=== PATIENT | female | born 1955 | race Caucasian/White ===

== ENCOUNTER → 2020-07-21 00:41 | Outpatient (CLI) | payer MEDICARE, SELFPAY ==
[2020-07-22 00:40] LABS: SARS-CoV-2 RNA PCR Negative
== END ==
PROVIDERS: PCP Family Medicine; Visit Provider Internal Medicine Gastroenterology
DX: Z01.812 Encounter for preprocedural laboratory examination (principal); Z20.822 Contact with and (suspected) exposure to COVID-19
CPT/HCPCS: C9803; U0003; U0005

== ENCOUNTER 2020-07-24 02:55 | Day surgery (SDC) | payer MEDICARE, SELFPAY ==
[2020-07-12 10:52] VITALS: BMI 33.1
[2020-07-24] MEDS: LACTATED RINGERS 1,000 ML 150 ML IV CONT (07:36)
[2020-07-24 07:38] VITALS: BMI 31.9
[2020-07-24 07:39] VITALS: BP 111/72; PULSE 71; RESP 16; TEMP 37.1; O2SAT 97
--- NOTE | 2020-07-24 07:58 | PM.HPGS ---
History of Present Illness History of Present Illness Consent: Risks, benefits, and alternatives have been discussed and questions answered. Patient agrees to proceed with procedure. Chief complaint: neoplasm screening Narrative: Sarah Sutton is a 64 year old female Here for colon cancer screening Review of Systems Review of Systems: All systems reviewed & are unremarkable except as noted in HPI and below PMFSH Past Medical History Medical History Cataract (~2019) Hepatitis C antibody test negative (02/13/17) Surgical History Surgical History H/O laparoscopy (~1989) Family History Family History Father Diabetes mellitus Hypertension Acute myocardial infarction Family history of coronary artery disease Grandparent Family history of kidney disease Family history of lung cancer Family history of coronary artery disease Mother Family history of coronary artery disease Other Family history of arthritis Family history of cardiovascular disease Family history of cataracts Family history of elevated blood lipids Family history of hearing loss Family history of malignant neoplasm of breast Family history of osteoporosis Social History Social History Smoking status: Never smoker Second hand tobacco smoke exposure: No Alcohol intake: never Substance use: never Substance use type: does not use Living arrangements: with family Gender identity (if verbalized by the patient): Female Spiritual care concerns: No Agree to blood products: Yes Meds Home Medications and Allergies Home Medications Medication Instructions Recorded Confirmed Type cholecalciferol (vitamin D3) 25 25 mcg PO DAILY 09/19/19 07/24/20 History mcg (1,000 unit) capsule atorvastatin 20 mg tablet 20 mg PO DAILY #90 tablet 04/04/20 07/24/20 Rx ezetimibe 10 mg tablet 10 mg PO DAILY #90 tablet 04/04/20 07/24/20 Rx lisinopril 10 mg tablet 10 mg PO DAILY #90 tablet 04/04/20 07/24/20 Rx topiramate 25 mg tablet 25 mg PO DAILY #90 tablet 06/26/20 07/24/20 Rx Allergies Allergy/AdvReac Type Severity Reaction Status Date / Time NKDA Allergy Unknown Unknown Uncoded 07/24/20 07:32 Vital Signs Vital Signs - 24 hr 07/24/20 07:39 Temperature 37.1 C Pulse Rate 71 Respiratory Rate 16 Blood Pressure 111/72 Pulse Oximetry 97 Exam Resp: Auscultation: clear to auscultation bilaterally Cardio: Rate: regular rate Rhythm: regular rhythm GI: GI Palp: Yes Soft to palpation and No Tenderness to palpation present (GI) Assessment and Plan Assessment and plan (1) Colon cancer screening: Code(s): Z12.11 - Encounter for screening for malignant neoplasm of colon Status: Acute Assessment and Plan: Colonoscopy with possible biopsy or polypectomy or cautery or injection of substances.
--- NOTE | 2020-07-24 08:07 | WPDANESEPPF ---
Anes - Initial Pre Proc Eval Procedure: Operation Date: 07/24/20 08:30 Proposed Procedures p Screening Colonoscopy - Edgardo Gonzalez MD Date/Time: 07/24/20 08:07 Surgeon: Edgardo Gonzalez MD Pre Op Diagnosis: neoplasm screening Patient Data Age: 64 Gender: F Height: 4 ft 10 in Weight: 69.3 kg Last Vital Signs Temp 98.7 F 07/24/20 07:39 Pulse 71 07/24/20 07:39 Resp 16 07/24/20 07:39 BP 111/72 07/24/20 07:39 Pulse Ox 97 07/24/20 07:39 Allergies Allergy/AdvReac Type Severity Reaction Status Date / Time NKDA Allergy Unknown Unknown Uncoded 07/24/20 07:32 Home Medications Medication Instructions Recorded Confirmed Type cholecalciferol (vitamin D3) 25 25 mcg PO DAILY 09/19/19 07/24/20 History mcg (1,000 unit) capsule atorvastatin 20 mg tablet 20 mg PO DAILY #90 tablet 04/04/20 07/24/20 Rx ezetimibe 10 mg tablet 10 mg PO DAILY #90 tablet 04/04/20 07/24/20 Rx lisinopril 10 mg tablet 10 mg PO DAILY #90 tablet 04/04/20 07/24/20 Rx topiramate 25 mg tablet 25 mg PO DAILY #90 tablet 06/26/20 07/24/20 Rx Patient hx anesthesia problems: none Family hx anesthesia problems: none PMFSH Past Medical History Medical History (Updated 07/24/20 @ 08:07 by Connor Gonzalez MD) Cataract (~2019) Essential (primary) hypertension Hepatitis C antibody test negative (02/13/17) Pure hypercholesterolemia, unspecified Surgical History Surgical History H/O laparoscopy (~1989) Family History Family History Father Diabetes mellitus Hypertension Acute myocardial infarction Family history of coronary artery disease Grandparent Family history of kidney disease Family history of lung cancer Family history of coronary artery disease Mother Family history of coronary artery disease Other Family history of arthritis Family history of cardiovascular disease Family history of cataracts Family history of elevated blood lipids Family history of hearing loss Family history of malignant neoplasm of breast Family history of osteoporosis Social History Social History Smoking status: Never smoker Second hand tobacco smoke exposure: No Alcohol intake: never Substance use: never Substance use type: does not use Living arrangements: with family Gender identity (if verbalized by the patient): Female Spiritual care concerns: No Agree to blood products: Yes Anes - Eval Final PreProcedure Day of Procedure 07/24/20 08:07 Patient weight: overweight Heart: regular rate and rhythm Lungs: clear to auscultation Airway: Mallampati scale class II Neurological: alert and oriented Last oral intake: >/= 8 hours ASA classification: III Emergent: no Anesthetic plan: proceed Anesthesia type and monitoring: general GIVS and standard monitoring Informed Consent: The patient's anesthetic plan and its attendant risks and benefits were discussed with the patient/family/POA. Questions were solicited and answers provided to the satisfaction of the patient/family/POA.
[2020-07-24 08:49] VITALS: BP 106/62; PULSE 70; RESP 26; O2SAT 98
[2020-07-24 08:59] VITALS: BP 112/62; PULSE 62; RESP 20; O2SAT 98
[2020-07-24 09:09] VITALS: BP 115/60; PULSE 61; RESP 18; O2SAT 98
== END 2020-07-24 09:20 | disposition home or self-care (01) ==
PROVIDERS: PCP Family Medicine; Visit Provider Internal Medicine Gastroenterology
PROC: 0DJD8ZZ Inspection of Lower Intestinal Tract, Via Natural or Artificial Opening Endoscopic (ICD-10-PCS; CPT 45378; principal; 2020-07-24 08:30)
DX: Z12.11 Encounter for screening for malignant neoplasm of colon (principal); K57.30 Diverticulosis of large intestine without perforation or abscess without bleeding; Z80.1 Family history of malignant neoplasm of trachea, bronchus and lung; Z80.3 Family history of malignant neoplasm of breast; Z82.49 Family history of ischemic heart disease and other diseases of the circulatory system
CPT/HCPCS: G0121; J7120

== ENCOUNTER 2021-03-20 11:04 | Emergency (ER) | payer MEDICARE, SELFPAY ==
[2021-03-20 11:24] VITALS: BP 151/97; PULSE 96; RESP 18; TEMP 36.6; O2SAT 98
[2021-03-20 13:55] VITALS: BP 159/109; PULSE 95; RESP 18; O2SAT 96
--- NOTE | 2021-03-20 15:07 | PC.NURSE ---
PT ambulatory out of ED stating if i from an aneurysm, i will nataliya you'. pt ambulatory swiftly out of ED with nl steady gait.
== END 2021-03-21 04:23 | disposition left against medical advice (07) ==
PROVIDERS: PCP Family Medicine
DX: R51.9 Headache, unspecified (principal)
CPT/HCPCS: 99199

== ENCOUNTER → 2021-03-27 02:52 | Outpatient (CLI) | payer MEDICARE, SELFPAY ==
[2021-03-28 02:22] LABS: SARS-CoV-2 RNA PCR Negative
== END ==
PROVIDERS: PCP Family Medicine; Visit Provider Physician Assistant
DX: R68.89 Other general symptoms and signs (principal); Z20.822 Contact with and (suspected) exposure to COVID-19
CPT/HCPCS: C9803; U0003; U0005

== ENCOUNTER 2021-04-01 15:33 | Outpatient (CLI) | payer MEDICARE, SELFPAY ==
--- NOTE | ~2021-04-01 | CT_ITS ---
EXAMINATION: CT brain wo con DATE: 04/01/2021 15:56 INDICATION: Headache. TECHNIQUE: Computed tomography (CT) of the head was performed without intravenous contrast. The mA wa s adjusted according to patient size. Iterative reconstruction technique was employed. The dose-lengt h product was 605.33 mGy-cm. COMPARISON: Head CT 01/06/2007 FINDINGS: There is no intracranial hemorrhage, acute infarction, or abnormal intracranial mass lesion . The ventricles are normal in size. There are likely changes of ocular lens replacement surgeries. T he paranasal sinuses are clear. The mastoid air cells are normal. IMPRESSION: 1. Normal brain. Reviewed, dictated and finalized at location A. [employer]ING [employer]IC[employer] IMPRESSION: 1. Normal brain.
== END 2021-04-01 15:34 | disposition home or self-care (01) ==
PROVIDERS: PCP Family Medicine; Visit Provider Physician Assistant
DX: R51.9 Headache, unspecified (principal)
CPT/HCPCS: 70450

== ENCOUNTER 2021-07-16 16:20 | Outpatient (CLI) | payer MEDICARE, SELFPAY ==
--- NOTE | ~2021-07-16 | DEXA_ITS ---
Bone Density Report Name: MAGGIE HOANG Age: 65 Sex: Female Ethnicity: White Date of : 1955 Indication: postmenopausal; screening for osteoporosis; parental hip fracture; height loss; cancer; Referring Provider: GEOVANI REDD Study: Bone densitometry was performed. Exam Date: July 16, 2021 Accession number: [id number] Bone Density: Region BMD T-score Z-score Classification AP Spine(L1, L2, L3) 0.819 -1.8 0.1 Osteopenia Femoral Neck (Left) 0.562 -2.6 -0.9 Osteoporosis Total Hip (Left) 0.762 -1.5 -0.1 Osteopenia Femoral Neck (Right) 0.616 -2.1 -0.4 Osteopenia Total Hip (Right) 0.762 -1.5 -0.1 Osteopenia Total Hip Mean 0.762 -1.5 -0.1 Osteopenia World Health Organization criteria for BMD impression classify patients as: Normal (T-score at or above -1.0), Osteopenia (T-score between -1.0 and -2.5), or Osteoporosis (T-score at or below -2.5). 10-year Fracture Risk: FRAX not reported because: Some T-score for Spine Total or Hip Total or Femoral Neck at or below -2.5 Clinical Information Provided by Patient: Parent has had a hip fracture Has used the following medications: Vitamin D Has the following medical conditions: Cancer Patient maximum height was 59 Menopause Age: 40 Drinks caffeinated beverages Onset of menses at age 8 Number of children 2 Impression: The patient has osteoporosis, based on the Left Femoral Neck T-score. The patient has risk factors, including: parental hip fracture. Discussion: INCREASED RISK OF FRACTURE. BONE DENSITY IS UNDESIRABLY LOW AT ONE OR MORE SKELETAL SITES, CONSISTENT WITH POSTMENOPAUSAL OSTEOPOROSIS. This patient's lowest T-score meets the World Health Organization's (WHO) criteria for osteoporosis at one or more sites (T-score -2.5 or below). In untreated patients, the risk of osteoporotic fracture increases approximately two-fold for each 1.0 SD decrease in T-score. Low bone density is not the only risk factor for fracture; also consider factors such as patient's age, frailty or poor health, risk of falling, risk of injury, previous osteoporotic fracture, family history of osteoporosis, cigarette smoking, low body weight, etc. Not everyone with low bone mineral density has osteoporosis; osteomalacia and other metabolic bone disorders should also be considered. Patients who have osteoporosis should be evaluated for specific diseases and conditions (secondary causes) that may cause or contribute to bone loss. The [place] [employer] Endocrinologists (AACE) and National Osteoporosis Foundation (NOF) recommend pharmacologic intervention for all postmenopausal women whose T-score is in this range. The patient should follow a healthful lifestyle (good nutrition with adequate calcium and vitamin D, and appropriate weight-bearing exercise). Fol
== END 2021-07-16 16:21 | disposition home or self-care (01) ==
PROVIDERS: PCP Family Medicine; Visit Provider Family Medicine
DX: Z78.0 Asymptomatic menopausal state (principal); M81.0 Age-related osteoporosis without current pathological fracture; M85.88 Other specified disorders of bone density and structure, other site; M85.852 Other specified disorders of bone density and structure, left thigh; M85.851 Other specified disorders of bone density and structure, right thigh
CPT/HCPCS: 77080

== ENCOUNTER 2021-10-18 13:30 | Outpatient (CLI) | payer MEDICARE, SELFPAY ==
--- NOTE | ~2021-10-18 | XR_ITS ---
XR wrist RT w scaphoid DATE: 10/18/2021 13:52 INDICATION: Fall. Lateral wrist pain. TECHNIQUE: 5 views COMPARISON: None FINDINGS: No fracture or dislocation, periosteal reaction or bone destruction is detected. IMPRESSION: No fracture or dislocation Reviewed, dictated and finalized at location B. IMPRESSION: No fracture or dislocation
== END 2021-10-18 13:31 | disposition home or self-care (01) ==
PROVIDERS: PCP Family Medicine; Visit Provider Family Medicine
DX: M25.531 Pain in right wrist (principal)
CPT/HCPCS: 73110

== ENCOUNTER 2022-01-02 14:11 | Outpatient (CLI) | payer MEDICARE, SELFPAY ==
--- NOTE | ~2022-01-02 | CT_ITS ---
EXAMINATION: CT brain wo con DATE: 01/02/2022 14:40 INDICATION: Head injury TECHNIQUE: Computed tomography (CT) of the head was performed without intravenous contrast. Sagittal and coronal reconstructions were performed. The mA was adjusted according to patient size. Iterative reconstruction technique was employed. The dose-length product was 605.33 mGy-cm. COMPARISON: head CT dated 04/01/21 FINDINGS: No fracture. No acute intracranial hemorrhage, acute infarction or abnormal extra axial fluid collect ion. Ventricles are normal and symmetric. No mass/mass effect. Changes of bilateral intraocular lens replacement. The orbits, paranasal sinuses and mastoid air cells are normal. IMPRESSION: 1. Normal brain. No fracture or acute intracranial process. Reviewed, dictated and finalized at location A.
== END 2022-01-02 14:12 | disposition home or self-care (01) ==
PROVIDERS: PCP Family Medicine; Visit Provider Nurse Practitioner
DX: S09.90XA Unspecified injury of head, initial encounter (principal); X58.XXXA Exposure to other specified factors, initial encounter
CPT/HCPCS: 70450

== ENCOUNTER 2024-10-14 12:54 | Outpatient (CLI) | payer MEDICARE, SELFPAY ==
--- NOTE | ~2024-10-14 | DEXA_ITS ---
Bone Density Report Name: MAGGIE HOANG Age: 69 Sex: Female Ethnicity: White Date of : 1955 Indication: osteopenia; parental hip fracture; cancer; Referring Provider: SKINNY THOMAS Study: Bone densitometry was performed. Exam Date: October 14, 2024 Accession number: [id number] Bone Density: Region BMD T-score Z-score Classification AP Spine(L1, L2, L3) 0.839 -1.6 0.5 Osteopenia Femoral Neck (Left) 0.575 -2.5 -0.6 Osteoporosis Total Hip (Left) 0.732 -1.7 -0.2 Osteopenia Femoral Neck (Right) 0.599 -2.3 -0.4 Osteopenia Total Hip (Right) 0.770 -1.4 0.2 Osteopenia Total Hip Mean 0.751 -1.6 0.0 Osteopenia World Health Organization criteria for BMD impression classify patients as: Normal (T-score at or above -1.0), Osteopenia (T-score between -1.0 and -2.5), or Osteoporosis (T-score at or below -2.5). 10-year Fracture Risk: FRAX not reported because: Some T-score for Spine Total or Hip Total or Femoral Neck at or below -2.5 Previous Exams: -- Region Exam Age BMD T-score BMD Change BMD Change Date g/cm2 vs Baseline vs Previous -- AP Spine (L1-L3) 10/14/2024 69 0.839 -1.6 1.0%# 2.5% 07/16/2021 65 0.819 -1.8 -1.5%# -5.0%# 12/19/2016 61 0.862 -1.4 3.7%* 0.2% 12/07/2013 58 0.860 -1.4 3.4%* 3.4%* 11/09/2012 57 0.831 -1.7 Total Hip(Left) 10/14/2024 69 0.732 -1.7 -5.7%# -4.0%* 07/16/2021 65 0.762 -1.5 -1.8%# -5.4%# 12/19/2016 61 0.806 -1.1 3.8%* 7.5%* 12/07/2013 58 0.749 -1.6 -3.5% -3.5% 11/09/2012 57 0.777 -1.4 Total Hip(Right) 10/14/2024 69 0.770 -1.4 5.7%# 1.0% 07/16/2021 65 0.762 -1.5 4.6%# -4.6%# 12/19/2016 61 0.799 -1.2 9.7%* 2.9% 12/07/2013 58 0.777 -1.4 6.6%* 6.6%* 11/09/2012 57 0.728 -1.8 -- *Denotes significance at 95% confidence level, LSC for AP Spine = 0.022 g/cm2, LSC for Total Hip = 0.027 g/cm2 Rate of change results reflect vertebral levels common to all scans # Denotes dissimilar scan types or analysis methods Clinical Information Provided by Patient: Parent has had a hip fracture Has used the following medications: Fosamax (i.e. alendronate), HRT (i.e. estrogen/hormone therapy), Vitamin D, Calcium Has the following medical conditions: Cancer, BREAST CA 2009 Patient maximum height was 58 Menopause Age: 41 No regular weight bearing exercise Drinks caffeinated beverages Onset of menses at age 7 Number of children 23 Impression: The patient has osteoporosis, based on the Left Femoral Neck T-score. The patient has risk factors, including: parental hip fracture. The BMD for the Total Hip(Left) decreased, changing by -4.0% since the last DXA exam. Discussion: INCREASED RISK OF FRACTURE. BONE DENSITY IS UNDESIRABLY LOW AT ONE OR MORE SKELETAL SITES, CONSISTENT WITH POSTMENOPAUSAL OSTEOPOROSIS. This patient's lowest T-score meets the World Health Organization's (WHO) criteria for osteoporosis at one or more sites (T-score -2.5 or below). In untreated patients, the risk of osteoporotic fracture increases approximately two-fold for each 1.0 SD decrease in T-score. Low bone density is not the only risk factor for fracture; also consider factors such as patient's age, frailty or poor health, risk of falling, risk of injury, previous osteoporotic fracture, family history of osteoporosis, cigarette smoking, low body weight, etc. Not everyone with low bone mineral density has osteoporosis; osteomalacia and other metabolic bone disorders should also be considered. Patients who have osteoporosis should be evaluated for specific diseases and conditions (secondary causes) that may cause or contribute to bone loss. The [place] [employer] Endocrinologists (AACE) and National Osteoporosis Foundation (NOF) recommend pharmacologic intervention for all postmenopausal women whose T-score is in this range. The patient should follow a healthful lifestyle (good nutrition with adequate calcium and vitamin D, and appropriate weight-bearing exercise). Follow-Up: Consider a repeat BMD and Vertebral Fracture Assessment (VFA) exam in 2 years or sooner if medically necessary, to reassess this patient's status. Reported by: RICKY on 10/14/2024 1:35:00 PM. Reviewed, dictated and finalized at location A.
== END 2024-10-14 12:55 | disposition home or self-care (01) ==
LOC: MICIMG 12:56
PROVIDERS: PCP Family Medicine; Visit Provider Student in an Organized Health Care Education/Training Program
DX: M81.0 Age-related osteoporosis without current pathological fracture (principal); M85.89 Other specified disorders of bone density and structure, multiple sites; Z78.0 Asymptomatic menopausal state
CPT/HCPCS: 77080